=== PATIENT | male | born 1990 | race Caucasian/White ===

== ENCOUNTER 2021-03-20 11:13 | Emergency (ER) | payer SELFPAY ==
[~2021-03-20] VITALS: Ht 182.9 cm; Wt 75.0 kg
[2021-03-20 11:40] VITALS: BP 164/91
--- NOTE | 2021-03-20 12:25 | PHYS DOC ---
Past Medical History Past Surgical History: Other Additional Past Surgical Histo: HERNIA, WISDOM TEETH Smoking Status: Current Every Day Smoker Alcohol Use: Occasionally Adult General Chief Complaint Chief Complaint: FLU SYMPTOM HPI HPI 30-year-old male presenting for evaluation of several days of upper respiratory congestion, rhinorrhea, mild dry cough, sore throat, fatigue, malaise and body aches. Unvaccinated against COVID-19. No fevers, difficulty breathing. Vital signs appropriate here aside from a degree of elevated blood pressure. Ambulatory with a narrow, steady gait into the emergency department. Review of Systems Review of Systems A 12 point review of systems was completed and was negative except where noted in HPI above. Allergies Allergies Allergies Coded Allergies Type Severity Reaction Last Updated Verified No Known Drug Allergies 03/20/21 No Physical Exam Physical Exam Younger male appearing nontoxic and in no acute distress. Head is normocephalic and atraumatic. Neck is supple and nontender. Oropharynx is moist. Lungs are clear to auscultation at all stations. There is a normal S1 and S2 without rubs or gallops and capillary refill is appropriate, less than 2 seconds globally. Abdomen is soft, nontender nondistended. Skin is warm and dry without cyanosis, clubbing or edema. Psychiatrically, the patient demonstrates appropriate mood and affect and is alert. Evaluation of the extremities reveals BUEs and BLEs neurovascular intact distally with strength 5 out of 5, sensation intact light touch in all nerve distributions, radial, DP and PT pulses 2+ equal bilaterally, capillary refill less than 2 seconds, hands and feet warm and well-perfused. No dependent peripheral edema distally. No calf tenderness or swelling bilaterally. Homans test is negative bilaterally. Current Patient Data Vital Signs Vital Signs Date Time Temp Pulse Resp B/P (MAP) Pulse Ox O2 Delivery O2 Flow Rate FiO2 03/20/21 11:40 98.1 55 20 164/91 (115) 99 Room Air 98.1 EKG EKG [] Radiology/Procedures Radiology/Procedures [] Course & Med Decision Making Course & Med Decision Making Have swabbed for flu and for Covid and will contact the patient if either of his test come back positive. Patient is advised to purchase a pulse oximeter to monitor his oxygen level at home, drink fluids, get plenty of rest and take [id number] medication for symptom management. He understands that if he feels worse instead of better or develops other new symptoms of concern that he will need to return to the emergency department immediately for reevaluation. All questions are answered. Dragon Disclaimer Dragon Disclaimer This electronic medical record was generated, in whole or in part, using a voice recognition dictation system. Departure Departure Impression: Primary Impression: Upper respiratory infection, viral Disposition: HOME / SELF CARE / HOMELESS Condition: STABLE Patient Instructions: Upper Respiratory Infection, Adult Additional Instructions: Follow-up very closely with your primary care doctor in the office in the next 2 to 4 days for a reevaluation of your symptoms and to discussion of next best steps in care. Take [id number] DayQuil and NyQuil for symptom management and you may take 600 mg of ibuprofen every 6 hours as needed as well for di scomfort and/or fever (three 200mg pills). Purchase a pulse oximeter as we discussed to monitor your oxygen levels at home. Drink plenty of fluids and get plenty of rest. Return to the emergency department right away for worsening symptoms of any kind or with any other new symptoms of concern. We have tested you for Covid and for influenza. If either of these test come back positive, we will call you and let you know. Please make sure your bedside nurse has your best contact telephone number to follow-up with you. BARBARA MONTALVO MD Mar 20, 2021 12:25
[2021-03-20] MEDS ORDERED: IBUPROFEN 400 MG TABLET. PO ONE (12:30)
[2021-03-20 13:10] LABS: INFLUENZA A PATIENT NEGATIVE (NEGATIVE); INFLUENZA B PATIENT NEGATIVE (NEGATIVE)
--- NOTE | 2021-03-22 12:01 | NUR ---
IP: Informed pt of negative covid test. Pt verbalized understanding.
== END 2021-03-20 12:34 | disposition home or self-care (01) ==
LOC: ER 11:13
DX: F17.200 Nicotine dependence, unspecified, uncomplicated (principal); J06.9 Acute upper respiratory infection, unspecified; B97.89 Other viral agents as the cause of diseases classified elsewhere; Z20.822 Contact with and (suspected) exposure to COVID-19
CPT/HCPCS: 99283; U0003; U0005

== ENCOUNTER 2021-07-27 19:42 | Emergency (ER) | payer OTHER ==
[~2021-07-27] VITALS: Ht 182.9 cm; Wt 71.0 kg
[2021-07-27 20:45] VITALS: BP 112/69
--- NOTE | 2021-07-27 21:22 | PHYS DOC ---
Past Medical History Past Surgical History: Other Additional Past Surgical Histo: HERNIA, WISDOM TEETH Smoking Status: Current Every Day Smoker Alcohol Use: Occasionally General Adult EDM: Chief Complaint: SKIN RASH/ABSCESS HPI: HPI: Patient is a 31 year old male patient who presents to the ED today with a swollen area and the left groin that he noted yesterday. Patient states the area is tender. Denies any fever. Denies any penile drainage. Denies any difficulty voiding. Review of Systems: Review of Systems: Constitutional: Denies fever or chills. [] Male : Reports left groin swollen area : Denies dysuria. [] Musculoskeletal: Denies back pain or joint pain. [] Integument: Denies rash. [] Neurologic: Denies headache, focal weakness or sensory changes. [] Endocrine: Denies polyuria or polydipsia. [] Psychiatric: Denies depression or anxiety. [] Heart Score: C/O Chest Pain: N/A Risk Factors: Risk Factors: DM, Current or recent (<one month) smoker, HTN, HLP, family history of CAD, obesity. Risk Scores: Score 0 - 3: 2.5% MACE over next 6 weeks - Discharge Home Score 4 - 6: 20.3% MACE over next 6 weeks - Admit for Clinical Observation Score 7 - 10: 72.7% MACE over next 6 weeks - Early Invasive Strategies Allergies: Allergies: Allergies Coded Allergies Type Severity Reaction Last Updated Verified No Known Drug Allergies 03/20/21 No Physical Exam: PE: Constitutional: Well developed, well nourished, no acute distress, non-toxic appearance. [] Male exam with the Tyson NG in the room Penis and testicles appear normal. There is no signs of infection to the regions. There is an indurated area in the left inner thigh/groin with trace redness, the area is firm and tender suspicious of an inguinal lymphadenopathy. There is no signs of infection to the area Skin: Warm, dry, no erythema, no rash. [] Back: No tenderness, no CVA tenderness. [] Extremities: No tenderness, no cyanosis, no clubbing, ROM intact, no edema. [] Neurologic: Alert and oriented X 3, normal motor function, normal sensory funct ion, no focal deficits noted. [] Psychologic: Affect normal, judgement normal, mood normal. [] Current Patient Data: Vital Signs: Vital Signs Date Time Temp Pulse Resp B/P (MAP) Pulse Ox O2 Delivery O2 Flow Rate FiO2 07/27/21 20:45 98.3 93 16 112/69 (83) 96 Room Air 98.3 EKG: EKG: [] Radiology/Procedures: Radiology/Procedures: [] Course & Med Decision Making: Course & Med Decision Making Pertinent Labs and Imaging studies reviewed. (See chart for details) This a 31-year-old male patient presenting to the ED today with left groin lymphadenopathy. There is no testicular involvement, no penile involvement, the area does not appear infected. Recommended supportive care measures including warm compresses to the region. Follow-up with PCP in 1 week Roselyn Disclaimer: Roselyn Disclaimer: This electronic medical record was generated, in whole or in part, using a voice recognition dictation system. Departure Departure Impression: Primary Impression: Inguinal lymphadenopathy Disposition: HOME / SELF CARE / HOMELESS Condition: STABLE Referrals: NON,STAFF (PCP) follow up with your doctor in one week Additional Instructions: You have a swollen area on the left groin region that is suspicious of an enlarged lymph nodes. This could be a reactive lymph node. You can take ibuprofen or Tylenol as needed for pain. Apply warm compresses to the area for 1 week. Follow-up with your doctor in 1 to 2 weeks JOHN WILEY APRN July 27, 2021 21:22
== END 2021-07-27 21:33 | disposition home or self-care (01) ==
LOC: ER 19:42
DX: R59.0 Localized enlarged lymph nodes (principal); F17.200 Nicotine dependence, unspecified, uncomplicated
CPT/HCPCS: 99281